=== PATIENT | female | born 1950 | race American Indian/Alaskan Native ===

== ENCOUNTER 2019-11-14 13:32 | Inpatient (IN) | payer MEDICARE ==
--- NOTE | 2019-11-14 13:46 | Emergency Department Report ---
ED Shortness of Breath HPI - General Stated Complaint: SHORTNESS OF BREATH Time Seen by Provider: 11/14/19 13:36 Source: patient, EMS, old records reviewed Mode of arrival: Stretcher Limitations: No Limitations - History of Present Illness Initial Comments: Mrs. Gilbert is a 68-year-old female with history of diabetes mellitus, congestive heart failure coronary artery disease with 2 cardiac stents, asthma, chronic kidney disease who presents with shortness of breath for 1 week. Mild cough. Denies chest pain. Denies fever. Denies wheezing. She has been out of her inhaler. Gradual onset of symptoms worse today. Shortness of breath improved with oxygen administered by EMS during transportation to the emergency department. Patient's cough is unchanged for the last several weeks MD Complaint: shortness of breath -: Gradual, week(s) (1) Severity: moderate Consistency: constant Improves With: oxygen Worsens With: exertion Known History Of: asthma, congestive heart failure Associated Symptoms: other (Lightheadedness) - Related Data Home Medications Medication Instructions Recorded Confirmed Last Taken Albuterol Sulfate [Ventolin HFA] 04/29/16 Unknown Clonidine HCl [Kapvay] 0.1 mg PO TID 04/29/16 04/29/16 04/29/16 Gabapentin [Neurontin] 300 mg PO Q8HR 04/29/16 04/29/16 04/28/16 Insulin Aspart (Nf) [NovoLOG 0 units SQ AC 04/29/16 04/29/16 04/28/16 Flexpen] Insulin Glargine [Lantus] 30 units SQ QHS 04/29/16 04/29/16 04/27/16 Metoprolol Succinate [Metoprolol 200 mg PO QDAY 04/29/16 04/29/16 04/28/16 SUCCINATE ER TAB] amLODIPine 10 mg PO DAILY 04/29/16 04/29/16 04/29/16 glyBURIDE [Glyburide] 10 mg PO BID 04/29/16 04/29/16 04/29/16 hydroCHLOROthiazide [HCTZ] 25 mg PO QDAY 04/29/16 04/29/16 04/27/16 lisinopriL [Zestril] 20 mg PO QDAY 04/29/16 04/29/16 04/29/16 Previous Rx's Medication Instructions Recorded Last Taken Type Sulfamethoxazole/Trimethoprim 1 each PO BID #14 tablet 04/29/16 Unknown Rx [Bactrim DS TAB] Syringe and Needle,Insulin,1Ml 1 each MC PRN PRN #1 disp.syrin 04/29/16 Unknown Rx [Insulin Syringe/Needle 1 ML] Allergies Allergy/AdvReac Type Severity Reaction Status Date / Time acetaminophen Allergy Vomiting Verified 04/29/16 10:32 [From Darvocet-N] propoxyphene napsylate Allergy Vomiting Verified 04/29/16 10:32 [From Darvocet-N] ED Review of Systems ROS: Stated complaint: SHORTNESS OF BREATH Other details as noted in HPI Comment: All other systems reviewed and negative Constitutional: denies: fever, malaise Respiratory: cough, shortness of breath Cardiovascular: denies: chest pain ED Past Medical Hx - Past Medical History Previous Medical History?: Yes Hx Hypertension: Yes Hx Diabetes: Yes Hx Renal Disease: Yes (insufficiency) - Surgical History Past Surgical History?: Yes Additional Surgical History: Adelfo. Carpel tunnel release - Social History Smoking Status: Former Smoker Substance Use Type: Prescribed - Medications Home Medications: Home Medications Medication Instructions Recorded Confirmed Last Taken Type Albuterol Sulfate [Ventolin HFA] 04/29/16 Unknown History Clonidine HCl [Kapvay] 0.1 mg PO TID 04/29/16 04/29/16 04/29/16 History Gabapentin [Neurontin] 300 mg PO Q8HR 04/29/16 04/29/16 04/28/16 History Insulin Aspart (Nf) [NovoLOG 0 units SQ AC 04/29/16 04/29/16 04/28/16 History Flexpen] Insulin Glargine [Lantus] 30 units SQ QHS 04/29/16 04/29/16 04/27/16 History Metoprolol Succinate [Metoprolol 200 mg PO QDAY 04/29/16 04/29/16 04/28/16 History SUCCINATE ER TAB] Sulfamethoxazole/Trimethoprim 1 each PO BID #14 tablet 04/29/16 Unknown Rx [Bactrim DS TAB] Syringe and Needle,Insulin,1Ml 1 each MC PRN PRN #1 disp.syrin 04/29/16 Unknown Rx [Insulin Syringe/Needle 1 ML] amLODIPine 10 mg PO DAILY 04/29/16 04/29/16 04/29/16 History glyBURIDE [Glyburide] 10 mg PO BID 04/29/16 04/29/16 04/29/16 History hydroCHLOROthiazide [HCTZ] 25 mg PO QDAY 04/29/16 04/29/16 04/27/16 History lisinopriL [Zestril] 20 mg PO QDAY 04/29/16 04/29/16 04/29/16 History ED Physical Exam - General General appearance: alert, in no apparent distress - Head Head exam: Present: atraumatic, normocephalic - Eye Eye exam: Present: normal appearance - ENT ENT exam: Present: mucous membranes moist - Neck Neck exam: Present: normal inspection, full ROM - Respiratory Respiratory exam: Present: normal lung sounds bilaterally. Absent: respiratory distress, wheezes, rales, rhonchi - Cardiovascular Cardiovascular Exam: Present: regular rate, normal rhythm, normal heart sounds. Absent: systolic murmur, diastolic murmur, rubs, gallop - GI/Abdominal GI/Abdominal exam: Present: soft, normal bowel sounds. Absent: distended, tenderness, guarding, rebound - Rectal Rectal exam: Present: heme (-) stool, hemorrhoids - Extremities Exam Extremities exam: Present: normal inspection - Neurological Exam Neurological exam: Present: alert, oriented X3 - Psychiatric Psychiatric exam: Present: normal affect, normal mood - Skin Skin exam: Present: warm, dry, intact, normal color. Absent: rash ED Course Vital Signs 11/14/19 11/14/19 11/14/19 13:40 14:00 14:15 Temperature 98.7 F Pulse Rate 96 H 98 H Respiratory 14 16 Rate Blood Pressure 148/84 175/77 [Left] O2 Sat by Pulse 98 98 Oximetry 11/14/19 11/14/19 11/14/19 14:35 16:45 17:00 Temperature Pulse Rate Respiratory 22 19 18 Rate Blood Pressure 173/76 170/71 168/78 [Left] O2 Sat by Pulse 98 98 98 Oximetry ED Medical Decision Making - Lab Data Result diagrams: 11/14/19 14:51 11/14/19 14:51 Laboratory Results - last 24 hr 11/14/19 11/14/19 11/14/19 14:51 14:51 14:51 WBC 8.5 RBC 2.94 L Hgb 7.5 L Hct 23.6 L MCV 80 MCH 26 L MCHC 32 RDW 19.2 H Plt Count 296 Lymph % (Auto) 10.6 L [place] % (Auto) 8.4 H Eos % (Auto) 0.3 Baso % (Auto) 0.3 Lymph # 0.9 L [place] # 0.7 Eos # 0.0 Baso # 0.0 Seg Neutrophils % 80.4 H Seg Neutrophils # 6.9 Sodium 137 Potassium 3.1 L Chloride 101.1 Carbon Dioxide 18 L Anion Gap 21 BUN 22 H Creatinine 2.1 H Estimated GFR 28 BUN/Creatinine Ratio 10 Glucose 142 H Calcium 9.0 Total Bilirubin 0.90 AST 19 ALT 18 Alkaline Phosphatase 98 Troponin T < 0.010 NT-Pro-B Natriuret Pep Total Protein 7.6 Albumin 4.1 Albumin/Globulin Ratio 1.2 11/14/19 14:51 WBC RBC Hgb Hct MCV MCH MCHC RDW Plt Count Lymph % (Auto) [place] % (Auto) Eos % (Auto) Baso % (Auto) Lymph # [place] # Eos # Baso # Seg Neutrophils % Seg Neutrophils # Sodium Potassium Chloride Carbon Dioxide Anion Gap BUN Creatinine Estimated GFR BUN/Creatinine Ratio Glucose Calcium Total Bilirubin AST ALT Alkaline Phosphatase Troponin T NT-Pro-B Natriuret Pep 1555 H Total Protein Albumin Albumin/Globulin Ratio - EKG Data EKG shows normal: sinus rhythm, axis, intervals, QRS complexes, ST-T waves Rate: normal - EKG Data Interpretation: normal EKG (With exception of P wave enlargement) 11/14/19 15:23 EKG obtained 1512 Normal sinus rhythm normal rate normal axis normal intervals no ST elevation no ST-T signs of ischemia normal EKG - Radiology Data Radiology results: report reviewed Chest radiograph: Venous congestion small pleural effusions - Medical Decision Making Acute CHF exacerbation, patient's oxygen saturation drops with minimal exertion. Unclear if this is a new or old diagnosis. Patient is unable to give full medical history. Treated with IV Lasix nitroglycerin Anemia also may be a new finding possibly related to chronic kidney disease. Critical care attestation.: If time is entered above; I have spent that time in minutes in the direct care of this critically ill patient, excluding procedure time. ED Disposition Clinical Impression: Acute exacerbation of CHF (congestive heart failure), CKD (chronic kidney disease), Anemia Disposition: OP ADMIT IP TO THIS HOSP Is pt being admited?: Yes Does the pt Need Aspirin: No Condition: Stable
[2019-11-14] MEDS ORDERED: MAGNESIUM SULFATE 2 GM/50 ML BAG IV ONE (14:06)
[2019-11-14] MEDS ORDERED: methylPREDNISolone Sod Succinate 125 MG/2 ML INJ IV ONE (14:06)
[2019-11-14] MEDS ORDERED: IPRATROPIUM/ALBUTEROL SULFATE 3 ML AMPUL.NEB IH ONE (14:07)
--- NOTE | 2019-11-14 14:56 | XRay Report ---
CHEST 1 VIEW INDICATION: Dyspnea. COMPARISON: None FINDINGS: Support devices: None. Heart: Within normal limits. Lungs/Pleura: Mild pulmonary venous congestion and small pleural effusions are suspected. No convinci ng pneumonia. No pneumothorax. Additional findings: None. IMPRESSION: Pulmonary venous congestion and small pleural effusions. Correlate for volume overload. Signer Name: Den Patino Jr, MD Signed: 11/14/2019 2:52 PM Workstation Name: [id number]
[2019-11-14 15:15] LABS: Basophils % (Auto) 0.3 % (0.0-1.8); Eosinophils % (Auto) 0.3 % (0.0-4.3); Hematocrit 23.6 % (30.3-42.9); Hemoglobin 7.5 gm/dl (10.1-14.3); Lymphocytes # (Auto) 0.9 K/mm3 (1.2-5.4); Lymphocytes % (Auto) 10.6 % (13.4-35.0); Mean Corpuscular HGB Conc 32 % (30-34); Mean Corpuscular Volume 80 fl (79-97); Monocytes # (Auto) 0.7 K/mm3 (0.0-0.8); Monocytes % (Auto) 8.4 % (0.0-7.3); Platelet Count 296 K/mm3 (140-440); Red Blood Count 2.94 M/mm3 (3.65-5.03); Red Cell Distribution Width 19.2 % (13.2-15.2)
[2019-11-14 15:43] LABS: Albumin 4.1 g/dL (3.9-5)
[2019-11-14] MEDS ORDERED: NITROGLYCERIN 2% OINT 1 GM TP ONE (17:16)
[2019-11-14] MEDS ORDERED: FUROSEMIDE 40 MG/4 ML INJ IV ONE (17:16)
[2019-11-14] MEDS ORDERED: ALBUTEROL 8.5 GM INHALATION IH PRN (23:08)
[2019-11-14] MEDS ORDERED: ACETAMINOPHEN 325 MG TAB PO PRN ×2 (23:30→23:50)
[2019-11-14] MEDS ORDERED: ONDANSETRON 4 MG/2 ML INJ IV PRN (23:30)
[2019-11-14] MEDS ORDERED: METOCLOPRAMIDE 10 MG/2 ML INJ IV PRN (23:30)
[2019-11-14] MEDS ORDERED: HYDROmorphone 1 MG/1 ML INJ IV PRN ×2 (23:30→23:49)
[2019-11-14] MEDS ORDERED: oxyCODONE /ACETAMINOPHEN 5-325MG TAB PO PRN (23:30)
[2019-11-14] MEDS ORDERED: ALBUTEROL 2.5 MG/3 ML NEBU IH PRN (23:49)
[2019-11-15] MEDS: glyBURIDE 5 MG TAB PO SCH ×3 (00:35→21:43)
[2019-11-15] MEDS: GABAPENTIN 300 MG CAP PO SCH ×4 (00:35→21:41)
[2019-11-15] MEDS ORDERED: NITROGLYCERIN 0.4 MG TAB SUBL SL PRN (00:53)
[2019-11-15] MEDS ORDERED: INSULIN LISPRO 100 UNIT/ML SUB-Q ONE (01:30)
[2019-11-15] MEDS: hydrALAZINE 10 MG TAB PO SCH ×3 (02:17→21:42)
[2019-11-15] MEDS: RANOLAZINE ER 500 MG TAB 12HR PO SCH ×3 (02:17→21:41)
[2019-11-15] MEDS: HEPARIN 5,000 UNIT/1 ML VIAL SUB-Q SCH ×2 (02:19→12:35)
[2019-11-15 05:10] LABS: Albumin 3.8 g/dL (3.9-5); Calcium 8.7 mg/dL (8.4-10.2)
[2019-11-15 05:16] LABS: Hematocrit 21.5 % (30.3-42.9); Hemoglobin 6.8 gm/dl (10.1-14.3); Mean Corpuscular HGB Conc 32 % (30-34); Mean Corpuscular Volume 82 fl (79-97); Platelet Count 282 K/mm3 (140-440); Red Blood Count 2.64 M/mm3 (3.65-5.03); Red Cell Distribution Width 18.9 % (13.2-15.2)
[2019-11-15] MEDS ORDERED: FUROSEMIDE 40 MG/4 ML INJ IV SCH (06:00)
--- NOTE | 2019-11-15 06:10 | Event Note ---
Date: 11/14/19 Acute CHF exacerbation H/p dictated
[2019-11-15 06:35] LABS: Basophils % (Manual) 0 % (0.0-1.8); Eosinophils % (Manual) 0 % (0.0-4.3); Total Cells Counted 100
[2019-11-15 06:36] LABS: Anisocytosis Few
[2019-11-15 06:38] LABS: Hypochromasia 1+; Platelet Estimate Consistent w Auto
--- NOTE | 2019-11-15 06:51 | History and Physical Report ---
CHIEF COMPLAINT: Increasing shortness of breath. HISTORY OF PRESENT ILLNESS: A 68-year-old female with history of diabetes, congestive heart failure, coronary artery disease with 2 stents, asthma, chronic kidney disease, presents with shortness of breath for 1 week. Shortness of breath on minimal exertion. Orthopnea present. Shortness of breath was improved with administration of oxygenation by EMS. No chest pain. The patient also has cough for last several weeks. The patient is on lisinopril. No recent exposure to coronavirus, no fever. The patient has class 4 NYHA symptoms. PAST MEDICAL HISTORY: Hypertension, diabetes, and renal insufficiency. PAST SURGICAL HISTORY: Carpal tunnel syndrome release in both hands. SOCIAL HISTORY: Former smoker. FAMILY HISTORY: Hypertension. CURRENT MEDICATIONS: On the chart including clonidine, albuterol sulfate, gabapentin, and insulin. Also, metoprolol and amlodipine and glyburide. REVIEW OF SYSTEMS: Significant for increasing shortness of breath and orthopnea and class 4 NYHA symptoms. PHYSICAL EXAMINATION: GENERAL: Elderly female, cooperative during examination. VITAL SIGNS: Blood pressure is 174/74, temperature is 98.4, pulse is 101, respiratory rate is 24. HEENT: Unremarkable. NECK: Accessory muscles of respiration are prominent. LUNGS: Bilateral rales present. Good air entry. CARDIOVASCULAR: S1, S2 heard. No gallop, no murmur, no rub. Apical impulse in left fifth intercostal space in midclavicular line. ABDOMEN: Soft and benign. No hepatosplenomegaly. No guarding, no rigidity. Hernial orifices are normal. EXTREMITIES: Good pedal pulses. No pedal edema. CENTRAL NERVOUS SYSTEM: Alert and oriented x 4, nonfocal exam. SKIN: Normal. LABORATORY DATA: Chest x-ray shows pulmonary venous congestion and small pleural effusions. Correlate for volume overload. EKG, no acute ST-T wave changes. Heart rate of 100 per minute. Labs are significant for H and H of 7.5 and 23.6, potassium is 3.1, BUN and creatinine is 22 and 2.1, glucose is 142. A1c is 6.5. BNP is 1555. ASSESSMENT AND PLAN: 1. Acute congestive heart failure exacerbation secondary to diastolic failure. The patient initiated on IV Lasix. Echocardiogram ordered for ejection fraction. Cardiology consult requested. Daily intake, output and daily weights. 2. Acute kidney injury. Nephrology consulted. IV fluids could not be given because of congestive heart failure. 3. Hypokalemia, supplemented. 4. Hypertension. Continue antihypertensives. 5. Insulin-dependent diabetes. Continue insulin. A1c is a bit high at 6.7. Insulin dosage to be adjusted by the primary team. 6. Deep venous thrombosis prophylaxis, heparin 5000 q. 12. In summary, the patient has CHF exacerbation. Echo to be checked. Cardiology consult to be checked. Hypokalemia, supplemented. Potassium level to be checked and acute kidney injury. Nephrology consult was requested. JOB# [id number] DAVID/MARNIE FAM
[2019-11-15] MEDS: INSULIN LISPRO 100 UNIT/ML SUB-Q SCH ×4 (08:14→22:52)
[2019-11-15] MEDS: cloNIDine 0.1 MG TAB PO SCH ×3 (08:14→21:40)
[2019-11-15] MEDS ORDERED: POTASSIUM CHLORIDE ER 20 MEQ TAB PO NR (08:53)
[2019-11-15] MEDS ORDERED: amLODIPine 10 MG TAB PO SCH (10:00)
[2019-11-15] MEDS ORDERED: LEVOTHYROXINE 25 MCG TAB PO SCH (10:00)
[2019-11-15] MEDS ORDERED: hydroCHLOROthiazide 25 MG TAB PO SCH (10:00)
[2019-11-15] MEDS ORDERED: NON-FORMULARY EACH (Furosemide 20 MG) PO SCH (10:00)
--- NOTE | 2019-11-15 10:21 | Consultation ---
History of Present Illness Consult date: 11/15/19 Consult reason: congestive heart failure History of present illness: This is a 68-year old woman with multiple medical problems. She has a history of two vessel coronary artery disease status post PCI of the RCA and OM1 at a year ago. Normal LVEF 65% by echocardiogram. She is on DAPT with Brilinta and aspirin and reports compliance. Co-morbidities includes chronic kidney disease followed by Dr Dickinson, Hypertension, Diabetes, Asthma and Hypothyroidism. Patient presents to this hospital with complaints of shortness of breath. She denies chest pain. There is no lower extremity edema. Laboratory studies shows severe anemia with a HCT of 21.5. Creatinine at 2.4. BNP of 1555. Patient denies bleeding from any source. Blood pressure is stable. A chest xray reports venous congestion with small pleural effusions. An ECG is sinus rhythm, no acute ischemic changes. A cardiac consultation has been requested for CHF evaluation. Medications and Allergies Allergies Allergy/AdvReac Type Severity Reaction Status Date / Time acetaminophen Allergy Vomiting Verified 04/29/16 10:32 [From Darvocet-N] propoxyphene napsylate Allergy Vomiting Verified 04/29/16 10:32 [From Darvocet-N] Home Medications Medication Instructions Recorded Confirmed Last Taken Type Insulin Aspart (Nf) [NovoLOG 0 units SQ AC 04/29/16 11/14/19 04/28/16 History Flexpen] Insulin Glargine [Lantus] 30 units SQ QHS 04/29/16 11/14/19 04/27/16 History Syringe and Needle,Insulin,1Ml 1 each MC PRN PRN #1 disp.syrin 04/29/16 11/14/19 Unknown Rx [Insulin Syringe/Needle 1 ML] amLODIPine 10 mg PO DAILY 04/29/16 11/15/19 11/14/19 History 10 mg Acetaminophen-Codeine #2 TAB 1 tab PO Q4HR PRN 11/15/19 11/15/19 Unknown History Aspirin EC 81 mg PO DAILY 11/15/19 11/15/19 1 Day Ago History ~11/14/19 AtorvaSTATin 40 mg PO QPM 11/15/19 11/15/19 2 Days Ago History ~11/13/19 Brilinta 90 mg PO BID 11/15/19 11/15/19 1 Day Ago History ~11/14/19 Duloxetine HCl 30 mg PO DAILY 11/15/19 11/15/19 1 Day Ago History ~11/14/19 Furosemide 20 mg PO DAILY 11/15/19 11/15/19 Unknown History ISOSORBIDE MONOnitrate 60 mg PO QAM 11/15/19 11/15/19 1 Day Ago History ~11/14/19 Levothyroxine 25 mcg PO QAM 11/15/19 11/15/19 1 Day Ago History ~11/14/19 Nitroglycerin 0.4 mg PO PRN PRN 11/15/19 11/15/19 2 Days Ago History ~11/13/19 0.4 mg Potassium Chloride 10 meq PO DAILY 11/15/19 11/15/19 2 Days Ago History ~11/13/19 Ranolazine ER 500 mg PO BID 11/15/19 11/15/19 1 Day Ago History ~11/14/19 hydrALAZINE [Apresoline TAB] 50 mg PO BID 11/15/19 11/15/19 11/14/19 History Active Meds: Active Medications Acetaminophen (Tylenol) 650 mg PO Q4H PRN PRN Reason: Pain MILD(1-3)/Fever >100.5/SHIN Albuterol (Proventil) 2.5 mg IH Q4HRT PRN PRN Reason: Shortness Of Breath Amlodipine Besylate (Amlodipine) 10 mg PO DAILY [facility] Clonidine HCl (Catapres) 0.1 mg PO TID [facility] Last Admin: 11/15/19 08:14 Dose: 0.1 mg Documented by: Famotidine (Pepcid) 20 mg IV BID [facility] Furosemide (Lasix) 40 mg IV 0600,1800 [facility] Last Admin: 11/15/19 06:26 Dose: 40 mg Documented by: Gabapentin (Gabapentin) 300 mg PO Q8HR [facility] Last Admin: 11/15/19 06:26 Dose: Not Given Documented by: Glyburide (Diabeta) 10 mg PO BID [facility] Last Admin: 11/15/19 00:35 Dose: Not Given Documented by: Heparin Sodium (Porcine) (Heparin) 5,000 unit SUB-Q Q12HR [facility] Last Admin: 11/15/19 02:19 Dose: 5,000 unit Documented by: Hydralazine HCl (Apresoline) 50 mg PO BID [facility] Last Admin: 11/15/19 02:17 Dose: 50 mg Documented by: Hydrochlorothiazide (Hctz) 25 mg PO QDAY [facility] Hydromorphone HCl (Dilaudid) 0.5 mg IV Q3H PRN PRN Reason: Pain , Severe (7-10) Last Admin: 11/15/19 00:48 Dose: 0.5 mg Documented by: Insulin Glargine (Lantus) 30 units SUB-Q QHS [facility] Insulin Human Lispro (Humalog) 0 unit SUB-Q ACHS [facility]; Protocol Last Admin: 11/15/19 08:14 Dose: 3 unit Documented by: Isosorbide Mononitrate (Imdur) 60 mg PO QAM [facility] Levothyroxine Sodium (Synthroid) 25 mcg PO QAM [facility] Lisinopril (Zestril) 20 mg PO QDAY [facility] Metoclopramide HCl (Reglan) 10 mg IV Q6H PRN PRN Reason: Nausea And Vomiting Metoprolol Succinate (Metoprolol Xl) 200 mg PO QDAY [facility] Nitroglycerin (Nitrostat) 0.4 mg SL PRN PRN PRN Reason: Chest Pain Ondansetron HCl (Zofran) 4 mg IV Q8H PRN PRN Reason: Nausea And Vomiting Last Admin: 11/15/19 00:48 Dose: 4 mg Documented by: Oxycodone/Acetaminophen (Percocet 5/325) 1 tab PO Q6H PRN PRN Reason: Pain, Moderate (4-6) Potassium Chloride (K-Dur) 10 meq PO DAILY [facility] Potassium Chloride (K-Dur) 40 meq PO ONCE ONE Stop: 11/15/19 08:54 Ranolazine (Ranexa Er) 500 mg PO BID [facility] Last Admin: 11/15/19 02:17 Dose: 500 mg Documented by: Sodium Chloride (Sodium Chloride Flush Syringe 10 Ml) 10 ml IV BID [facility] Sodium Chloride (Sodium Chloride Flush Syringe 10 Ml) 10 ml IV PRN PRN PRN Reason: LINE FLUSH Last Admin: 11/15/19 00:49 Dose: 10 ml Documented by: Physical Examination Vital Signs Temp 98.7 F 11/14/19 13:40 General appearance: no acute distress HEENT: Positive: PERRL Cardiac: Positive: Reg Rate and Rhythm Neuro: Positive: Grossly Intact Extremities: Absent: edema Results 11/15/19 04:14 11/15/19 04:14 Cardiac Enzymes 11/14/19 11/15/19 Range/Units 14:51 04:14 AST 19 18 (5-40) units/L CBC 11/14/19 11/15/19 Range/Units 14:51 04:14 WBC 8.5 5.9 (4.5-11.0) K/mm3 RBC 2.94 L 2.64 L (3.65-5.03) M/mm3 Hgb 7.5 L 6.8 L (10.1-14.3) gm/dl Hct 23.6 L 21.5 L (30.3-42.9) % Plt Count 296 282 (140-440) K/mm3 Lymph # 0.9 L (1.2-5.4) K/mm3 [place] # 0.7 (0.0-0.8) K/mm3 Eos # 0.0 (0.0-0.4) K/mm3 Baso # 0.0 (0.0-0.1) K/mm3 Comprehensive Metabolic Panel 11/14/19 11/15/19 Range/Units 14:51 04:14 Sodium 137 137 (137-145) mmol/L Potassium 3.1 L 3.4 L (3.6-5.0) mmol/L Chloride 101.1 98.9 (98-107) mmol/L Carbon Dioxide 18 L 20 L (22-30) mmol/L BUN 22 H 24 H (7-17) mg/dL Creatinine 2.1 H 2.4 H (0.7-1.2) mg/dL Glucose 142 H 263 H (65-100) mg/dL Calcium 9.0 8.7 (8.4-10.2) mg/dL AST 19 18 (5-40) units/L ALT 18 16 (7-56) units/L Alkaline Phosphatase 98 89 (35-129) units/L Total Protein 7.6 6.9 (6.3-8.2) g/dL Albumin 4.1 3.8 L (3.9-5) g/dL Assessment and Plan Shortness of breath Severe Anemia Hx of CAD s/p PCI of the RCA and OM1 11/2018 at [facility] EF 65% by echo 11/2018 Chronic renal failure Hypertension Diabetes
--- NOTE | 2019-11-15 12:04 | Progress Note ---
Assessment and Plan Acute CHF exacerbation with diastolic failure -Continue on IV Lasix, echocardiogram ordered -Cardiology consulted, monitor daily intake and output, daily weight NEETA on possible CKD -Nephrology consulted, monitor creatinine Hypokalemia, repleted, monitor BMP Hypertension, continue antihypertensive Insulin-dependent diabetes mellitus type 2 -A1c 6.7, continue home dose insulin and SSI -Consistent carb diet Severe anemia - hemoglobin 6.8 this morning -Ordered stool for occult blood, transfuse 1 unit DVT prophylaxis, SCD. Hold heparin for severe anemia 11/14 hemoglobin 6.8, will transfuse 1 unit of packed RBC Brief history: This is a 68-year old woman with history of two vessel coronary artery disease status post PCI, Normal LVEF 65% by echocardiogram, chronic kidney disease followed by Dr Dickinson, Hypertension, Diabetes, Asthma and Hypothyroidism presents to this hospital with complaints of shortness of breath. There is no lower extremity edema. Laboratory studies shows severe anemia with a HCT of 21.5. Creatinine at 2.4. BNP of 1555. Patient denies bleeding from any source. A chest xray reports venous congestion with small pleural effusions. Patient admitted for CHF exacerbation. Physical exam: GENERAL: well-developed and well-nourished -[place] female lying on bed appeared to be in no discomfort. HEENT: Normocephalic. Atraumatic. No conjunctival congestion or icterus. Patient has moist mucous membranes. NECK: Supple. Trachea midline. CHEST/LUNGS: Clear to auscultated bilaterally, breathing nonlabored. No wheezes crackles or rhonchi. HEART/CARDIOVASCULAR: Regular in rate and rhythm. S1 and S2 positive. ABDOMEN: Abdomen is soft, nontender. Patient has normal bowel sounds. SKIN: There is no rash. Warm and dry. NEURO: No focal motor deficit. Follows command. MUSCULOSKELETAL: No joint effusion or tenderness. EXTRIMITY: No edema, no cyanosis or clubbing. PSYCH: Cooperative. Subjective Date of service: 11/15/19 Interval history: Patient seen and examined. Medical records and medication list reviewed. No acute event overnight noted by the RN. Patient denies any chest pain but complains of difficulty breathing on ambulation. Patient is tolerating diet. Discussed plan of care at bedside with patient. Objective - Constitutional Vitals: Vital Signs - 12hr 11/15/19 11/15/19 11/15/19 00:26 01:00 02:17 Temperature 98.4 F Pulse Rate 102 H 102 H Pulse Rate [ 101 H Left Radial] Pulse Rate [ 101 H Right Radial] Respiratory 20 24 Rate Blood Pressure 174/74 174/74 O2 Sat by Pulse 98 Oximetry 11/15/19 11/15/19 11/15/19 05:00 06:11 06:14 Temperature 98.2 F Pulse Rate 91 H 99 H Pulse Rate [ Left Radial] Pulse Rate [ Right Radial] Respiratory Rate Blood Pressure 180/83 O2 Sat by Pulse 96 Oximetry 11/15/19 11/15/19 07:45 11:15 Temperature 98.2 F 98.7 F Pulse Rate 93 H 92 H Pulse Rate [ Left Radial] Pulse Rate [ Right Radial] Respiratory 18 20 Rate Blood Pressure 166/79 146/61 O2 Sat by Pulse 99 95 Oximetry - Labs CBC & Chem 7: 11/15/19 04:14 11/15/19 04:14 Labs: Abnormal lab results 11/14/19 11/14/19 11/14/19 Range/Units 14:51 14:51 14:51 RBC 2.94 L (3.65-5.03) M/mm3 Hgb 7.5 L (10.1-14.3) gm/dl Hct 23.6 L (30.3-42.9) % MCH 26 L (28-32) pg RDW 19.2 H (13.2-15.2) % Lymph % (Auto) 10.6 L (13.4-35.0) % [place] % (Auto) 8.4 H (0.0-7.3) % Lymph # 0.9 L (1.2-5.4) K/mm3 Seg Neutrophils % 80.4 H (40.0-70.0) % Seg Neuts % (Manual) (40.0-70.0) % Lymphocytes % (Manual) (13.4-35.0) % Lymphocytes # (Manual) (1.2-5.4) K/mm3 Potassium 3.1 L (3.6-5.0) mmol/L Carbon Dioxide 18 L (22-30) mmol/L BUN 22 H (7-17) mg/dL Creatinine 2.1 H (0.7-1.2) mg/dL Glucose 142 H (65-100) mg/dL POC Glucose (70-105) Hemoglobin A1c (4-6) % NT-Pro-B Natriuret Pep 1555 H (0-900) pg/mL Albumin (3.9-5) g/dL 11/14/19 11/15/19 11/15/19 Range/Units 23:45 00:01 04:14 RBC 2.64 L (3.65-5.03) M/mm3 Hgb 6.8 L (10.1-14.3) gm/dl Hct 21.5 L (30.3-42.9) % MCH 26 L (28-32) pg RDW 18.9 H (13.2-15.2) % Lymph % (Auto) (13.4-35.0) % [place] % (Auto) (0.0-7.3) % Lymph # (1.2-5.4) K/mm3 Seg Neutrophils % (40.0-70.0) % Seg Neuts % (Manual) 86.0 H (40.0-70.0) % Lymphocytes % (Manual) 12.0 L (13.4-35.0) % Lymphocytes # (Manual) 0.7 L (1.2-5.4) K/mm3 Potassium (3.6-5.0) mmol/L Carbon Dioxide (22-30) mmol/L BUN (7-17) mg/dL Creatinine (0.7-1.2) mg/dL Glucose (65-100) mg/dL POC Glucose 252 H (70-105) Hemoglobin A1c 6.7 H (4-6) % NT-Pro-B Natriuret Pep (0-900) pg/mL Albumin (3.9-5) g/dL 11/15/19 11/15/19 11/15/19 Range/Units 04:14 07:59 11:27 RBC (3.65-5.03) M/mm3 Hgb (10.1-14.3) gm/dl Hct (30.3-42.9) % MCH (28-32) pg RDW (13.2-15.2) % Lymph % (Auto) (13.4-35.0) % [place] % (Auto) (0.0-7.3) % Lymph # (1.2-5.4) K/mm3 Seg Neutrophils % (40.0-70.0) % Seg Neuts % (Manual) (40.0-70.0) % Lymphocytes % (Manual) (13.4-35.0) % Lymphocytes # (Manual) (1.2-5.4) K/mm3 Potassium 3.4 L (3.6-5.0) mmol/L Carbon Dioxide 20 L (22-30) mmol/L BUN 24 H (7-17) mg/dL Creatinine 2.4 H (0.7-1.2) mg/dL Glucose 263 H (65-100) mg/dL POC Glucose 210 H 297 H (70-105) Hemoglobin A1c (4-6) % NT-Pro-B Natriuret Pep (0-900) pg/mL Albumin 3.8 L (3.9-5) g/dL
--- NOTE | 2019-11-15 12:36 | Consultation ---
History of Present Illness - Reason for Consult Consult date: 11/15/19 - History of Present Illness This is a 68 y/o F with PMH of DM type 2 on insulin, CKD (exact stage unknown), CAD s/p stent placement, and asthma who presented to [facility] with c/o shortness of breath for about 1 wk, also c/o cough. On admission, SCr level was 2.1, today's Scr level was 2.4. Cardiology consulted for CHF, started on lasix, recommended pulmonology evaluation of right lower lobe infiltrate, bilateral small pleural effusions, testing for COVID-19, f/u recs. Pt found to have worsening anemia today with Hgb level of 6.8, pRBCs ordered. We were consulted to evaluate this pt who has NEETA on CKD. Pt had SCr level of 1.4 in 2016. Pt takes lisinopril and lasix at home. Given concern of possible COVID-19, pt not examined to limit direct contact/resources, reviewed medical chart/labs, notes. Medications and Allergies Allergies Allergy/AdvReac Type Severity Reaction Status Date / Time acetaminophen Allergy Vomiting Verified 04/29/16 10:32 [From Darvocet-N] propoxyphene napsylate Allergy Vomiting Verified 04/29/16 10:32 [From Darvocet-N] Home Medications Medication Instructions Recorded Confirmed Last Taken Type Insulin Aspart (Nf) [NovoLOG 0 units SQ AC 04/29/16 11/14/19 04/28/16 History Flexpen] Insulin Glargine [Lantus] 30 units SQ QHS 04/29/16 11/14/19 04/27/16 History Syringe and Needle,Insulin,1Ml 1 each MC PRN PRN #1 disp.syrin 04/29/16 11/14/19 Unknown Rx [Insulin Syringe/Needle 1 ML] amLODIPine 10 mg PO DAILY 04/29/16 11/15/19 11/14/19 History 10 mg Acetaminophen-Codeine #2 TAB 1 tab PO Q4HR PRN 11/15/19 11/15/19 Unknown History Aspirin EC 81 mg PO DAILY 11/15/19 11/15/19 1 Day Ago History ~11/14/19 AtorvaSTATin 40 mg PO QPM 11/15/19 11/15/19 2 Days Ago History ~11/13/19 Brilinta 90 mg PO BID 11/15/19 11/15/19 1 Day Ago History ~11/14/19 Duloxetine HCl 30 mg PO DAILY 11/15/19 11/15/19 1 Day Ago History ~11/14/19 Furosemide 20 mg PO DAILY 11/15/19 11/15/19 Unknown History ISOSORBIDE MONOnitrate 60 mg PO QAM 11/15/19 11/15/19 1 Day Ago History ~11/14/19 Levothyroxine 25 mcg PO QAM 11/15/19 11/15/19 1 Day Ago History ~11/14/19 Nitroglycerin 0.4 mg PO PRN PRN 11/15/19 11/15/19 2 Days Ago History ~11/13/19 0.4 mg Potassium Chloride 10 meq PO DAILY 11/15/19 11/15/19 2 Days Ago History ~11/13/19 Ranolazine ER 500 mg PO BID 11/15/19 11/15/19 1 Day Ago History ~11/14/19 hydrALAZINE [Apresoline TAB] 50 mg PO BID 11/15/19 11/15/19 11/14/19 History Active Meds: Active Medications Acetaminophen (Tylenol) 650 mg PO Q4H PRN PRN Reason: Pain MILD(1-3)/Fever >100.5/SHIN Albuterol (Proventil) 2.5 mg IH Q4HRT PRN PRN Reason: Shortness Of Breath Atorvastatin Calcium (Lipitor) 40 mg PO QHS [facility] Clonidine HCl (Catapres) 0.1 mg PO TID [facility] Last Admin: 11/15/19 08:14 Dose: 0.1 mg Documented by: Clopidogrel Bisulfate (Plavix) 75 mg PO QDAY [facility] Famotidine (Pepcid) 20 mg IV BID [facility] Furosemide (Lasix) 40 mg PO DAILY@0600 [facility] Gabapentin (Gabapentin) 300 mg PO Q8HR [facility] Last Admin: 11/15/19 06:26 Dose: Not Given Documented by: Glyburide (Diabeta) 10 mg PO BID [facility] Last Admin: 11/15/19 00:35 Dose: Not Given Documented by: Hydralazine HCl (Apresoline) 50 mg PO BID [facility] Last Admin: 11/15/19 02:17 Dose: 50 mg Documented by: Hydromorphone HCl (Dilaudid) 0.5 mg IV Q3H PRN PRN Reason: Pain , Severe (7-10) Last Admin: 11/15/19 00:48 Dose: 0.5 mg Documented by: Sodium Chloride (Nacl 0.9% 500 Ml) 500 mls @ 0 mls/hr IV ONCE ONE Stop: 11/15/19 13:01 Insulin Glargine (Lantus) 30 units SUB-Q QHS [facility] Insulin Human Lispro (Humalog) 0 unit SUB-Q ACHS [facility]; Protocol Last Admin: 11/15/19 08:14 Dose: 3 unit Documented by: Isosorbide Mononitrate (Imdur) 60 mg PO QAM [facility] Levothyroxine Sodium (Synthroid) 25 mcg PO QAM [facility] Lisinopril (Zestril) 20 mg PO QDAY [facility] Metoclopramide HCl (Reglan) 10 mg IV Q6H PRN PRN Reason: Nausea And Vomiting Metoprolol Succinate (Metoprolol Xl) 200 mg PO QDAY [facility] Nifedipine (Procardia Xl) 60 mg PO QDAY [facility] Nitroglycerin (Nitrostat) 0.4 mg SL PRN PRN PRN Reason: Chest Pain Ondansetron HCl (Zofran) 4 mg IV Q8H PRN PRN Reason: Nausea And Vomiting Last Admin: 11/15/19 00:48 Dose: 4 mg Documented by: Oxycodone/Acetaminophen (Percocet 5/325) 1 tab PO Q6H PRN PRN Reason: Pain, Moderate (4-6) Potassium Chloride (K-Dur) 10 meq PO DAILY [facility] Ranolazine (Ranexa Er) 500 mg PO BID [facility] Last Admin: 11/15/19 02:17 Dose: 500 mg Documented by: Sodium Chloride (Sodium Chloride Flush Syringe 10 Ml) 10 ml IV BID [facility] Sodium Chloride (Sodium Chloride Flush Syringe 10 Ml) 10 ml IV PRN PRN PRN Reason: LINE FLUSH Last Admin: 11/15/19 00:49 Dose: 10 ml Documented by: Exam - Vital Signs Vital signs: Vital Signs Temp 98.7 F 11/14/19 13:40 Results - Lab Results 11/15/19 04:14 11/15/19 04:14 Most recent lab results Calcium 8.7 mg/dL (8.4-10.2) 11/15/19 04:14 Assessment and Plan Severe Anemia Acute Kidney Injury possibly prerenal/ATN, on CKD with possible progression of CKD, r/o obstruction Hypokalemia Questionable Acute diastolic CHF CAD s/p stents on Brilinta Hx of Asthma HTN DM Type 2 on insulin Plan: - Renal function reviewed, SCr level was 2.4 today, yesterday's SCr level was 2.1 - Review of labs in computer system showed SCr level of 1.4 in 2016 - Underlying CKD likely due to DM and HTN, exact SCr baseline unclear - On lasix 40 mg po daily - Replete potassium - Check magnesium level - Obtain Renal US - Renally dose meds - May need to hold lisinopril if renal function continues to worsen - Obtain urine lytes, protein, eosinophils - Hgb level 6.8 today, transfuse 1 unit of pRBCs, check occult stool - Strict intake and output - Renal plan d/w Dr Calero
[2019-11-15] MEDS ORDERED: SODIUM CHLORIDE 0.9% 500 ML 500 ML IV ONE (13:00)
[2019-11-15] MEDS: METOPROLOL SUCCINATE XL 100 MG TAB PO SCH (13:24)
[2019-11-15] MEDS: FAMOTIDINE 20 MG/2 ML INJ IV SCH ×2 (13:25→21:42)
[2019-11-15] MEDS: LISINOPRIL 20 MG TAB PO SCH (13:31)
[2019-11-15] MEDS: NIFEdipine XL 60 MG TAB PO SCH (14:06)
[2019-11-15] MEDS: POTASSIUM CHLORIDE ER 10 MEQ TAB PO SCH (18:12)
[2019-11-15] MEDS ORDERED: INSULIN GLARGINE 100 UNITS/ML SUB-Q SCH (22:00)
[2019-11-15 22:16] LABS: Creatinine,Urine 126.7 mg/dL (0.1-20.0); Microalbumin/Creatinine Ratio 54.4 ug/mg; Protein/Creatinine Ratio,Urine 0.24
[2019-11-15] MEDS ORDERED: ACETAMINOPHEN CODEINE PO PRN (23:18)
--- NOTE | 2019-11-15 23:37 | Event Note ---
Date: 11/15/19 Cardiology recommended to r/o covid19 will order inflammatory markers and rapid flu test - if lab work suggestive for possible COVID and rapid flu test negative then will order for the test
[2019-11-16 02:47] LABS: C-Reactive Protein 0.3 mg/dL (0.00-1.30)
[2019-11-16] MEDS: GABAPENTIN 300 MG CAP PO SCH (05:03)
[2019-11-16 05:13] LABS: Hemoglobin 7.8 gm/dl (10.1-14.3); Mean Corpuscular HGB Conc 32 % (30-34); Mean Corpuscular Volume 83 fl (79-97); Platelet Count 279 K/mm3 (140-440); Red Blood Count 2.91 M/mm3 (3.65-5.03); Red Cell Distribution Width 17.7 % (13.2-15.2)
[2019-11-16] MEDS ORDERED: FUROSEMIDE 40 MG TAB PO SCH (06:00)
[2019-11-16] MEDS ORDERED: LEVOTHYROXINE 25 MCG TAB PO SCH (06:00)
[2019-11-16 06:28] LABS: Calcium 8.7 mg/dL (8.4-10.2)
[2019-11-16 08:19] VITALS: BP 155/79
--- NOTE | 2019-11-16 08:54 | XRay Report ---
CHEST 1 VIEW INDICATION: SOB. COMPARISON: 11/14/2019 FINDINGS: Support devices: None. Heart: Stable cardiomegaly and central vascular congestion. Lungs/Pleura: Slightly increased bibasal opacities with silhouetting of the diaphragm and opacificati on of the costophrenic angles. However, this may be due to differences in positioning between the 2 e xams. Additional findings: None. IMPRESSION: 1. Congestive heart failure with pulmonary venous hypertension and bilateral pleural effusions is not significantly changed since the last exam. 2. No pulmonary edema. Signer Name: Hamilton Hensley MD Signed: 11/16/2019 8:49 AM Workstation Name: [id number]
[2019-11-16] MEDS: INSULIN LISPRO 100 UNIT/ML SUB-Q SCH (09:55)
[2019-11-16] MEDS: POTASSIUM CHLORIDE ER 10 MEQ TAB PO SCH (09:57)
[2019-11-16] MEDS: NIFEdipine XL 60 MG TAB PO SCH (09:58)
[2019-11-16] MEDS: FAMOTIDINE 20 MG/2 ML INJ IV SCH (09:58)
[2019-11-16] MEDS: glyBURIDE 5 MG TAB PO SCH (09:58)
[2019-11-16] MEDS: METOPROLOL SUCCINATE XL 100 MG TAB PO SCH (09:58)
[2019-11-16] MEDS: hydrALAZINE 10 MG TAB PO SCH (09:59)
[2019-11-16] MEDS: RANOLAZINE ER 500 MG TAB 12HR PO SCH (09:59)
[2019-11-16] MEDS ORDERED: ASPIRIN EC 81 MG TAB PO SCH (10:00)
[2019-11-16] MEDS ORDERED: DULoxetine 30 MG CAP PO SCH (10:00)
[2019-11-16] MEDS: LISINOPRIL 20 MG TAB PO SCH (10:00)
[2019-11-16] MEDS ORDERED: AZITHROMYCIN 250 MG TAB PO SCH (10:00)
[2019-11-16] MEDS: cloNIDine 0.1 MG TAB PO SCH (10:00)
[2019-11-16] MEDS ORDERED: TICAGRELOR 90 MG TAB PO SCH (10:00)
[2019-11-16] MEDS ORDERED: CLOPIDOGREL 75 MG TAB PO SCH (10:00)
--- NOTE | 2019-11-16 10:08 | Progress Note ---
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 Subjective Date of service: 11/16/19 Interval history: Patient is sitting up in bed. She denies chest pain and reports her breathing is better. Objective Vital Signs Temp Pulse Pulse Resp BP BP Pulse Ox 11/16/19 10:00 66 155/79 11/16/19 09:59 66 155/79 11/16/19 09:58 66 155/79 11/16/19 08:16 98.4 F 66 18 155/79 90 11/16/19 06:02 63 97 11/16/19 06:01 97.4 F L 62 127/61 96 11/16/19 03:22 98.5 F 73 16 100/73 11/16/19 01:00 70 18 100 11/16/19 00:58 71 11/15/19 23:49 70 98 11/15/19 21:42 70 121/57 11/15/19 21:40 70 121/57 11/15/19 21:00 98.6 F 70 18 125/65 100 11/15/19 20:41 98.6 F 70 18 125/63 100 11/15/19 20:11 98.7 F 70 18 121/57 100 11/15/19 19:41 98.5 F 73 18 139/66 100 11/15/19 19:40 98.5 F 73 139/66 100 11/15/19 19:11 98.2 F 70 18 140/69 100 11/15/19 18:41 98.0 F 72 18 131/66 98 11/15/19 18:11 99.1 F 71 18 130/58 99 11/15/19 17:41 98.8 F 73 18 110/56 96 11/15/19 17:26 98.5 F 77 20 140/70 97 11/15/19 16:36 98.5 F 77 20 140/70 97 11/15/19 13:24 92 H 146/61 11/15/19 11:15 98.7 F 92 H 20 146/61 95 - Physical Examination General: No Apparent Distress HEENT: Positive: PERRL Neck: Positive: trachea midline Cardiac: Positive: Reg Rate and Rhythm Neuro: Positive: Grossly Intact Extremities: Absent: edema - Labs and Meds Cardiac Enzymes 11/16/19 Range/Units 01:02 Lactate Dehydrogenase 263 H (91-180) units/L CBC 11/16/19 Range/Units 04:59 WBC 10.7 (4.5-11.0) K/mm3 RBC 2.91 L (3.65-5.03) M/mm3 Hgb 7.8 L (10.1-14.3) gm/dl Hct 24.0 L (30.3-42.9) % Plt Count 279 (140-440) K/mm3 Comprehensive Metabolic Panel 11/16/19 Range/Units 04:59 Sodium 137 (137-145) mmol/L Potassium 3.9 (3.6-5.0) mmol/L Chloride 100.3 (98-107) mmol/L Carbon Dioxide 22 (22-30) mmol/L BUN 35 H (7-17) mg/dL Creatinine 2.8 H (0.7-1.2) mg/dL Glucose 69 (65-100) mg/dL Calcium 8.7 (8.4-10.2) mg/dL
--- NOTE | 2019-11-16 10:20 | Progress Note ---
Assessment and Plan Acute CHF exacerbation with diastolic failure -Continue on IV Lasix, echocardiogram showed preserved EF -Cardiology consulted, monitor daily intake and output, daily weight - will also r/o COVID19 Suspected COVID 19 - due to b/l pulmonary edema with SOB and normal EF will r/o COVID19 NEETA on possible CKD -Nephrology consulted, monitor creatinine Hypokalemia, repleted, monitor BMP Hypertension, continue antihypertensive Insulin-dependent diabetes mellitus type 2 -A1c 6.7, continue home dose insulin and SSI -Consistent carb diet Severe anemia - hemoglobin 6.8 this morning -Ordered stool for occult blood, transfuse 1 unit DVT prophylaxis, SCD. Hold heparin for severe anemia 11/14 hemoglobin 6.8, will transfuse 1 unit of packed RBC 11/15 [facility], ordered for COVID 19. CXR remained unchanged. SCr level was 2.8 today, yesterday's SCr level was 2.4. reduce dose of lasix, stop ACEI for now - lisinopril. Brief history: This is a 68-year old woman with history of two vessel coronary artery disease status post PCI, Normal LVEF 65% by echocardiogram, chronic kidney disease followed by Dr Dickinson, Hypertension, Diabetes, Asthma and Hypothyroidism presents to this hospital with complaints of shortness of breath. There is no lower extremity edema. Laboratory studies shows severe anemia with a HCT of 21.5. Creatinine at 2.4. BNP of 1555. Patient denies bleeding from any source. A chest xray reports venous congestion with small pleural effusions. Patient admitted for CHF exacerbation. Physical exam: GENERAL: well-developed and well-nourished -Citizen Of [place] female lying on bed appeared to be in no discomfort. HEENT: Normocephalic. Atraumatic. No conjunctival congestion or icterus. Patient has moist mucous membranes. NECK: Supple. Trachea midline. CHEST/LUNGS: Clear to auscultated bilaterally, breathing nonlabored. No wheezes crackles or rhonchi. HEART/CARDIOVASCULAR: Regular in rate and rhythm. S1 and S2 positive. ABDOMEN: Abdomen is soft, nontender. Patient has normal bowel sounds. SKIN: There is no rash. Warm and dry. NEURO: No focal motor deficit. Follows command. MUSCULOSKELETAL: No joint effusion or tenderness. EXTRIMITY: No edema, no cyanosis or clubbing. PSYCH: Cooperative. Subjective Date of service: 11/16/19 Interval history: Patient seen and examined. Medical records and medication list reviewed. No acute event overnight noted by the RN. Patient denies any chest pain but complains of difficulty breathing on ambulation. Patient is tolerating diet. CXR with persistent pulmonary edema with normal EF Discussed plan of care at bedside with patient. PUI?: Yes COVID19: Pending Objective - Constitutional Vitals: Vital Signs - 12hr 11/15/19 11/16/19 11/16/19 23:49 00:58 01:00 Temperature Pulse Rate 70 71 Pulse Rate [ 70 Right Radial] Respiratory 18 Rate Blood Pressure Blood Pressure [Left] O2 Sat by Pulse 98 100 Oximetry 11/16/19 11/16/19 11/16/19 03:22 06:01 06:02 Temperature 98.5 F 97.4 F L Pulse Rate 73 62 63 Pulse Rate [ Right Radial] Respiratory 16 Rate Blood Pressure 127/61 Blood Pressure 100/73 [Left] O2 Sat by Pulse 96 97 Oximetry 11/16/19 11/16/19 11/16/19 08:16 09:58 09:59 Temperature 98.4 F Pulse Rate 66 66 66 Pulse Rate [ Right Radial] Respiratory 18 Rate Blood Pressure 155/79 155/79 155/79 Blood Pressure [Left] O2 Sat by Pulse 90 Oximetry 11/16/19 10:00 Temperature Pulse Rate 66 Pulse Rate [ Right Radial] Respiratory Rate Blood Pressure 155/79 Blood Pressure [Left] O2 Sat by Pulse Oximetry - Labs CBC & Chem 7: 11/16/19 04:59 11/16/19 04:59 Labs: Abnormal lab results 11/15/19 11/15/19 11/15/19 Range/Units 11:27 12:19 21:49 RBC (3.65-5.03) M/mm3 Hgb (10.1-14.3) gm/dl Hct (30.3-42.9) % MCH (28-32) pg RDW (13.2-15.2) % D-Dimer (0-234) ng/mlDDU BUN (7-17) mg/dL Creatinine (0.7-1.2) mg/dL POC Glucose 297 H 168 H (70-105) Phosphorus (2.5-4.5) mg/dL Lactate Dehydrogenase (91-180) units/L PTH Intact (15-65) pg/mL Urine Creatinine (0.1-20.0) mg/dL Urine Total Protein (5-11.8) mg/dL Crossmatch See Detail 11/15/19 11/16/19 11/16/19 Range/Units 21:53 01:02 01:02 RBC (3.65-5.03) M/mm3 Hgb (10.1-14.3) gm/dl Hct (30.3-42.9) % MCH (28-32) pg RDW (13.2-15.2) % D-Dimer 845.40 H (0-234) ng/mlDDU BUN (7-17) mg/dL Creatinine (0.7-1.2) mg/dL POC Glucose (70-105) Phosphorus (2.5-4.5) mg/dL Lactate Dehydrogenase 263 H (91-180) units/L PTH Intact (15-65) pg/mL Urine Creatinine 126.7 H (0.1-20.0) mg/dL Urine Total Protein 31 H (5-11.8) mg/dL Crossmatch 11/16/19 11/16/19 11/16/19 Range/Units 04:59 04:59 04:59 RBC 2.91 L (3.65-5.03) M/mm3 Hgb 7.8 L (10.1-14.3) gm/dl Hct 24.0 L (30.3-42.9) % MCH 27 L (28-32) pg RDW 17.7 H (13.2-15.2) % D-Dimer (0-234) ng/mlDDU BUN 35 H (7-17) mg/dL Creatinine 2.8 H (0.7-1.2) mg/dL POC Glucose (70-105) Phosphorus 4.90 H (2.5-4.5) mg/dL Lactate Dehydrogenase (91-180) units/L PTH Intact 430.0 H (15-65) pg/mL Urine Creatinine (0.1-20.0) mg/dL Urine Total Protein (5-11.8) mg/dL Crossmatch 11/16/19 11/16/19 Range/Units 08:23 10:05 RBC (3.65-5.03) M/mm3 Hgb (10.1-14.3) gm/dl Hct (30.3-42.9) % MCH (28-32) pg RDW (13.2-15.2) % D-Dimer (0-234) ng/mlDDU BUN (7-17) mg/dL Creatinine (0.7-1.2) mg/dL POC Glucose 67 L 122 H (70-105) Phosphorus (2.5-4.5) mg/dL Lactate Dehydrogenase (91-180) units/L PTH Intact (15-65) pg/mL Urine Creatinine (0.1-20.0) mg/dL Urine Total Protein (5-11.8) mg/dL Crossmatch
--- NOTE | 2019-11-16 11:14 | Progress Note ---
Assessment and Plan Assessment: Severe Anemia Acute Kidney Injury possibly prerenal/ATN, on CKD with possible progression of CKD, r/o obstruction Hypokalemia, resolved Questionable Acute diastolic CHF CAD s/p stents on Brilinta Hx of Asthma Hypertension DM Type 2 on insulin Secondary Hyperparathyroidism Plan: - Renal function reviewed, SCr level was 2.8 today, yesterday's SCr level was 2.4 - Review of labs in computer system showed SCr level of 1.4 in 2016 - Underlying CKD likely due to DM and HTN, exact SCr baseline unclear - May need to hold lisinopril if renal function continues to worsen - Renal US-pending - Urine lytes reviewed. Urine eosinophils- none seen - PTH levels suggestive of CKD - Start Calcitriol 0.25 mcg po daily - CXR- showed CHF- On Lasix 40 mg po daily - Renally dose medications - Strict intake and output - Continue to monitor Subjective Date of service: 11/16/19 Interval history: COVID-19 PUI. Reviewed chart. PUI?: Yes COVID19: Pending Objective - Vital Signs Vital signs: Vital Signs - 12hr 11/15/19 11/16/19 11/16/19 23:49 00:58 01:00 Temperature Pulse Rate 70 71 Pulse Rate [ 70 Right Radial] Respiratory 18 Rate Blood Pressure Blood Pressure [Left] O2 Sat by Pulse 98 100 Oximetry 11/16/19 11/16/19 11/16/19 03:22 06:01 06:02 Temperature 98.5 F 97.4 F L Pulse Rate 73 62 63 Pulse Rate [ Right Radial] Respiratory 16 Rate Blood Pressure 127/61 Blood Pressure 100/73 [Left] O2 Sat by Pulse 96 97 Oximetry 11/16/19 11/16/19 11/16/19 08:16 09:58 09:59 Temperature 98.4 F Pulse Rate 66 66 66 Pulse Rate [ Right Radial] Respiratory 18 Rate Blood Pressure 155/79 155/79 155/79 Blood Pressure [Left] O2 Sat by Pulse 90 Oximetry 11/16/19 10:00 Temperature Pulse Rate 66 Pulse Rate [ Right Radial] Respiratory Rate Blood Pressure 155/79 Blood Pressure [Left] O2 Sat by Pulse Oximetry - Lab 11/16/19 04:59 11/16/19 04:59 Most recent lab results Calcium 8.7 mg/dL (8.4-10.2) 11/16/19 04:59 Phosphorus 4.90 mg/dL (2.5-4.5) H 11/16/19 04:59 Magnesium 2.20 mg/dL (1.7-2.3) 11/16/19 04:59 Urine Creatinine 126.7 mg/dL (0.1-20.0) H 11/15/19 21:53 Urine Sodium 27 mmol/L 11/15/19 21:53 Urine Total Protein 31 mg/dL (5-11.8) H 11/15/19 21:53 Medications & Allergies - Medications Allergies/Adverse Reactions: Allergies acetaminophen [From Darvocet-N] Allergy (Verified 04/29/16 10:32) Vomiting propoxyphene napsylate [From Darvocet-N] Allergy (Verified 04/29/16 10:32) Vomiting Home Medications: Home Medications Medication Instructions Recorded Confirmed Last Taken Type Insulin Aspart (Nf) [NovoLOG 0 units SQ AC 04/29/16 11/14/19 04/28/16 History Flexpen] Insulin Glargine [Lantus] 30 units SQ QHS 04/29/16 11/14/19 04/27/16 History Syringe and Needle,Insulin,1Ml 1 each MC PRN PRN #1 disp.syrin 04/29/16 11/14/19 Unknown Rx [Insulin Syringe/Needle 1 ML] amLODIPine 10 mg PO DAILY 04/29/16 11/15/19 11/14/19 History 10 mg Acetaminophen-Codeine #2 TAB 1 tab PO Q4HR PRN 11/15/19 11/15/19 Unknown History Aspirin EC 81 mg PO DAILY 11/15/19 11/15/19 1 Day Ago History ~11/14/19 AtorvaSTATin 40 mg PO QPM 11/15/19 11/15/19 2 Days Ago History ~11/13/19 Brilinta 90 mg PO BID 11/15/19 11/15/19 1 Day Ago History ~11/14/19 Duloxetine HCl 30 mg PO DAILY 11/15/19 11/15/19 1 Day Ago History ~11/14/19 Furosemide 20 mg PO DAILY 11/15/19 11/15/19 Unknown History ISOSORBIDE MONOnitrate 60 mg PO QAM 11/15/19 11/15/19 1 Day Ago History ~11/14/19 Levothyroxine 25 mcg PO QAM 11/15/19 11/15/19 1 Day Ago History ~11/14/19 Nitroglycerin 0.4 mg PO PRN PRN 11/15/19 11/15/19 2 Days Ago History ~11/13/19 0.4 mg Potassium Chloride 10 meq PO DAILY 11/15/19 11/15/19 2 Days Ago History ~11/13/19 Ranolazine ER 500 mg PO BID 11/15/19 11/15/19 1 Day Ago History ~11/14/19 hydrALAZINE [Apresoline TAB] 50 mg PO BID 11/15/19 11/15/19 11/14/19 History Active Medications: Generic Name Dose Route Start Last Admin Trade Name Freq PRN Reason Stop Dose Admin Acetaminophen 650 mg 11/14/19 23:50 11/15/19 18:12 Tylenol PO 650 mg Q4H PRN Administration Pain MILD(1-3)/Fever >100.5/SHIN Albuterol 2.5 mg 11/14/19 23:49 Proventil IH Q4HRT PRN Shortness Of Breath Aspirin 81 mg 11/16/19 10:00 11/16/19 09:59 Halfprin Ec PO 81 mg QDAY NAKUL Administration Atorvastatin Calcium 40 mg 11/15/19 22:00 11/15/19 21:41 Lipitor PO 40 mg QHS NAKUL Administration Azithromycin 500 mg 11/16/19 10:00 11/16/19 09:57 Zithromax PO 500 mg QDAY NKAUL Administration Clonidine HCl 0.1 mg 11/15/19 08:00 11/16/19 10:00 Catapres PO 0.1 mg TID NAKUL Administration Clopidogrel Bisulfate 75 mg 11/16/19 10:00 11/16/19 09:58 Plavix PO 75 mg QDAY NAKUL Administration Duloxetine HCl 30 mg 11/16/19 10:00 11/16/19 09:59 Cymbalta PO 30 mg QDAY NAKUL Administration Famotidine 20 mg 11/15/19 10:00 11/16/19 09:58 Pepcid IV 20 mg BID NAKUL Administration Furosemide 40 mg 11/16/19 06:00 11/16/19 05:03 Lasix PO 40 mg DAILY@0600 NAKUL Administration Gabapentin 300 mg 11/14/19 23:45 11/16/19 05:03 Gabapentin PO 300 mg Q8HR NAKUL Administration Glyburide 10 mg 11/14/19 23:15 11/16/19 09:58 Diabeta PO 10 mg BID NAKUL Administration Hydralazine HCl 50 mg 11/15/19 01:00 11/16/19 09:59 Apresoline PO 50 mg BID NAKUL Administration Hydromorphone HCl 0.5 mg 11/14/19 23:49 11/15/19 00:48 Dilaudid IV 0.5 mg Q3H PRN Administration Pain , Severe (7-10) Insulin Glargine 30 units 11/15/19 22:00 11/15/19 22:52 Lantus SUB-Q 30 units QHS [facility] Administration Insulin Human Lispro 0 unit 11/15/19 07:30 11/16/19 09:55 Humalog SUB-Q Not Given [facility] Protocol Isosorbide Mononitrate 60 mg 11/15/19 10:00 11/16/19 09:59 Imdur PO 60 mg QAM [facility] Administration Levothyroxine Sodium 25 mcg 11/16/19 06:00 11/16/19 05:03 Synthroid PO 25 mcg 0600 [facility] Administration Lisinopril 20 mg 11/15/19 10:00 11/16/19 10:00 Zestril PO 20 mg QDAY [facility] Administration Metoclopramide HCl 10 mg 11/14/19 23:30 Reglan IV Q6H PRN Nausea And Vomiting Metoprolol Succinate 200 mg 11/15/19 10:00 11/16/19 09:58 Metoprolol Xl PO 200 mg QDAY [facility] Administration Miscellaneous Medication 1 tab 11/15/19 23:18 Acetaminophen-Codeine #2 Tab PO Q4HR PRN Pain , Severe (7-10) Nifedipine 60 mg 11/15/19 13:00 11/16/19 09:58 Procardia Xl PO 60 mg QDAY [facility] Administration Nitroglycerin 0.4 mg 11/15/19 00:53 Nitrostat SL PRN PRN Chest Pain Ondansetron HCl 4 mg 11/14/19 23:30 11/15/19 00:48 Zofran IV 4 mg Q8H PRN Administration Nausea And Vomiting Oxycodone/Acetaminophen 1 tab 11/14/19 23:30 Percocet 5/325 PO Q6H PRN Pain, Moderate (4-6) Potassium Chloride 10 meq 11/15/19 10:00 11/16/19 09:57 K-Dur PO 10 meq DAILY NAKUL Administration Ranolazine 500 mg 11/15/19 01:00 11/16/19 09:59 Ranexa Er PO 500 mg BID NAKUL Administration Sodium Chloride 10 ml 11/15/19 10:00 11/16/19 10:01 Sodium Chloride Flush Syringe 10 Ml IV 10 ml BID NAKUL Administration Sodium Chloride 10 ml 11/14/19 23:30 11/15/19 00:49 Sodium Chloride Flush Syringe 10 Ml IV 10 ml PRN PRN Administration LINE FLUSH Ticagrelor 90 mg 11/16/19 10:00 11/16/19 09:58 Brilinta PO 90 mg BID NAKUL Administration
[2019-11-16] MEDS ORDERED: NON-FORMULARY EACH (Atorvastatin 40 MG) PO SCH (18:00)
[2019-11-17] MEDS ORDERED: CALCITRIOL 0.25 MCG CAP PO SCH (10:00)
[2019-11-17] MEDS ORDERED: FAMOTIDINE 20 MG TAB PO SCH (10:00)
--- NOTE | 2019-11-18 10:14 | Discharge Summary ---
Providers - Providers Date of Admission: 11/14/19 17:17 Date of discharge: 11/16/19 Attending physician: CAPO LE 11/14/19 23:21 Consult to Physician [CONS] Routine Comment: Consulting Provider: KOKI KULKARNI Physician Instructions: Reason For Exam: CHF exacerbation 11/14/19 23:29 Consult to Physician [CONS] Routine Comment: Consulting Provider: KEIRA RAMIREZ Physician Instructions: Reason For Exam: NEETA Primary care physician: [employer] Hospitalization Condition: Stable Hospital course: 68-year-old female with history of coronary artery disease status post stent presented to the hospital with complaints of shortness of breath and new onset of pulmonary edema and bilateral small pleural effusion on chest x-ray. Her 2D echo showed preserved EF, she was placed on IV Lasix, cardiology was consulted. Cardiology recommended patient to be ruled out for COVID-19. Test was ordered and patient was planned to move into isolation room. Patient refused the test and decided to leave AMA. Disposition: DC-07 LEFT AGAINST MED ADVICE Core Measure Documentation - Palliative Care Palliative Care/ Comfort Measures: Not Applicable - Core Measures Any of the following diagnoses?: history only Exam - Constitutional Vitals: Temp Pulse Resp BP Pulse Ox 98.4 F 66 18 155/79 100 11/16/19 08:16 11/16/19 12:18 11/16/19 12:18 11/16/19 10:00 11/16/19 12:18 Plan Follow up with: SUNI VIVAS MD [Primary Care Provider] - 7 Days Forms: AMA Form
== END 2019-11-16 14:05 | disposition left against medical advice (07) | DRG 291 ==
LOC: ED 13:32 → 4A 17:17
PROVIDERS: ADMIT Internal Medicine; ATTEND Internal Medicine
PROC: 30233N1 Transfusion of Nonautologous Red Blood Cells into Peripheral Vein, Percutaneous Approach (ICD-10-PCS; principal; 2019-11-15)
DX: I13.0 Hypertensive heart and chronic kidney disease with heart failure and stage 1 through stage 4 chronic kidney disease, or unspecified chronic kidney disease (principal); I50.31 Acute diastolic (congestive) heart failure; N17.0 Acute kidney failure with tubular necrosis; N25.81 Secondary hyperparathyroidism of renal origin; J81.1 Chronic pulmonary edema; D64.9 Anemia, unspecified; N18.9 Chronic kidney disease, unspecified; E87.6 Hypokalemia; I25.10 Atherosclerotic heart disease of native coronary artery without angina pectoris; J45.909 Unspecified asthma, uncomplicated; E11.22 Type 2 diabetes mellitus with diabetic chronic kidney disease; Z20.818 Contact with and (suspected) exposure to other bacterial communicable diseases; E03.9 Hypothyroidism, unspecified; Z95.1 Presence of aortocoronary bypass graft; Z79.4 Long term (current) use of insulin; Z88.6 Allergy status to analgesic agent; Z87.891 Personal history of nicotine dependence
CPT/HCPCS: 36415; 71045; 80048; 80053; 81015; 82043; 82570; 82728; 82962; 83036; 83615; 83735; 83880; 83970; 84100; 84145; 84156; 84300; 84484; 85007; 85025; 85027; 85379; 86140; 86850; 86900; 86901; 86920; 87400; 89050; 93005; 93010; 93306; 94644; G0378; A9270-GY; J1170; J1644; J1815; J1940; J2405; J2930; J3475; J7040; P9016